=== PATIENT | female | born 1965 | race Caucasian/White ===

== ENCOUNTER → 2017-01-24 | Day surgery (SDC) | payer OTHER ==
[~2017-01-24] VITALS: Ht 170.2 cm; Wt 57.1 kg
[~2017-01-24] MED LIST: *ONDANSETRON 4 MG VIAL PERIprocedural Use ONLY ONE; *diphenhydrAMINE HCL 50 MG/ML VIAL PERIprocedural Use ONLY ONE; *morphine SULFATE 8 MG/ML PERIprocedure ONLY ONE; AMBI5TAB PO; BUPIVACAINE/EPINEPHRINE 0.5% 50 ML VIAL ONE; CHLORHEXIDINE GLUCONATE 2 % 1 PACK (2 CLOTHS) TOPICAL PRN; CIPR250T52 PO; DO NOT ADM ANY ANTICOAGULANT DRUGS PRN; EFFE150C PO; EVAM1.532; FAMOTIDINE 20 MG/2 ML VIAL ONE; FLUO1TAB3 PO; INSULIN HUMAN REGULAR 1,000 UNITS/10 ML VIAL SQ PRN; KETO10 PO; KETOROLAC TROMETHAMINE 10 MG TAB PO PRN; LEVO.125 PO; METOPROLOL TARTRATE 25 MG TAB PO PRN; MIDAZOLAM HCL 2 MG/2 ML VIAL ONE; ONDANSETRON HCL 4 MG/2 ML VIAL IV PUSH ONE; POVIDONE IODINE 5% (ANTISEPSIS KIT) 4 APPLICATIONS EACH NARE PRN; PROG100C PO; PROPOFOL 200 MG/20 ML AMP IV ONE; SODIUM CHLORID 0.9% 500 ML IV PRN; SUGAMMADEX SODIUM 200 MG/2 ML VIAL IV PUSH ONE; VYVA50CA3 PO
[2017-01-24] MEDS: LACTATED RINGER'S 1000 ML IV PRN ×2 (06:30→09:40)
[2017-01-24 06:49] LABS: AUTOMATED NEUTROPHIL # 1.7 TH/MM3 (1.8-7.7); BASOPHIL # 0.1 TH/MM3 (0-0.2); BASOPHIL % 2.1 % (0.0-2.0); EOSINOPHIL # 0.3 TH/MM3 (0-0.4); HEMATOCRIT 41.1 % (35.0-46.0); HEMO FLAGS DIFF FINAL; LYMPH % 27.9 % (9.0-44.0); MEAN CELL VOLUME 84.5 FL (80.0-100.0); MEAN CORPUSCULAR HEMOGLOBIN 27.4 PG (27.0-34.0); MEAN CORPUSCULAR HGB CONC 32.4 % (32.0-36.0); MONO % 14.8 % (0.0-8.0); NEUT % 48.2 % (16.0-70.0); PLATELET COUNT 257 TH/MM3 (150-450); RED BLOOD COUNT 4.86 MIL/MM3 (4.00-5.30); WHITE BLOOD COUNT 3.6 TH/MM3 (4.0-11.0)
[2017-01-24 07:13] LABS: BETA HCG QUANT 1 MIU/ML (0-5)
--- NOTE | 2017-01-24 09:41 | PD.OP ---
Operative Report Date of Surgery: Jan 24, 2017 Preoperative Diagnosis: (1) Left ovarian cyst Postoperative Diagnosis: (1) Left ovarian cyst Procedure: operative LSC BSO Anesthesia: general Surgeon: Quentin Davalos Log Inspector(s): Quentin Busby MD Jan 24, 2017 09:41
--- NOTE | 2017-01-24 09:47 | HHI.DCPOC ---
Discharge Care Plan Diagnosis: (1) Left ovarian cyst Report Symptoms to Your Doctor -Temperature above 100.5 degrees -Redness, of incision or excessive or foul smelling drainage -Unusual pain or calf pain -Increased vaginal bleeding -Painful or difficulty urinating -Feelings of extreme sadness or anxiety after 2 weeks Goals to Promote Your Health * To prevent worsening of your condition and complications * To maintain your health at the optimal level Directions to Meet Your Goals Take your medications as prescribed Follow your dietary instruction Follow activity as directed Ensure plenty of rest for recovery Drink fluids for hydration Keep your appointments as scheduled Take your immunizations and boosters as scheduled If your symptoms worsen call your PCP, if no PCP go to Urgent Care Center or Emergency Room Smoking is Dangerous to Your Health. Avoid second hand smoke Call the 24-hour crisis hotline for domestic abuse at Quentin Davalos MD Jan 24, 2017 09:47
[2017-01-24 11:47] VITALS: BP 160/93; PULSE 66; RESP 16; TEMP 97.8; O2SAT 100
--- NOTE | 2017-01-24 13:07 | EKG ---
Date Performed: 01/24/2017 Time Performed: 07:15:14 PTAGE: 51 years EKG: SINUS BRADYCARDIA BORDERLINE ECG NO PREVIOUS TRACING DOCTOR: Jaqui Jewell Interpretating Date/Time 01/24/2017 13:05:08
--- NOTE | 2017-01-24 22:18 | MP ---
cc: TAYO DAVALOS DATE OF SURGERY 01/24/2017 PROCEDURE Operative laparoscopy with bilateral salpingo-oophorectomy. PREOPERATIVE DIAGNOSIS Left ovarian cyst 10 cm. POSTOPERATIVE DIAGNOSIS Left ovarian cyst [address] Tayo Davalos ESTIMATED BLOOD LOSS Less than 10 cc. COMPLICATIONS None. FINDINGS Large left ovarian cyst simple. No adhesions. Right ovary was postmenopausal. Upper abdomen, lower abdomen including appendix and liver were normal. ANESTHESIA General, Dr. Ron PROCEDURE IN DETAIL After informed consent the patient was taken to the operating room where she was placed under general anesthesia, placed in the spine position, legs in Yellofin stirrups. Abdomen, perineum, vagina prepped, draped in normal sterile fashion. Bladder was drained with a red Ryan catheter. Time-out was taken for the procedure and the patient identified. All equipment was available. At this point speculum was placed in the vagina. Cervix was grasped with a single-tooth tenaculum and an acorn uterine manipulator was placed in the cervix without difficulty. Once the cervix was able to be moved the gloves were changed and a 5 mm infraumbilical incision was then made after injection of 0.25% Marcaine with epinephrine, we entered the abdomen under direct visualization. The abdomen is insufflated with CO2 and a suprapubic 10/12 trocar was placed and a left lower quadrant 5 mm trocar was placed avoiding injury to blood vessels. The upper and lower abdomen as described in the findings. The left ovarian cyst was large, seen to be starting to have a torsion and the cyst was grasped along with the fallopian tube, we came across the infundibulopelvic ligament with the Harmonic scalpel. Good hemostasis was achieved in this area. We amputated that from the utero-ovarian ligament at the uterus. This was done without difficulty. On the right side the ovary was small, fallopian tube was grasped. We came underneath the infundibulopelvic ligament avoiding injury to pelvic sidewall structures, removed that ovary from the uterus also. This was all done with good hemostasis. When we went back and looked at the left side there was some oozing coming from that pedicle. Attempt with the Harmonic scalpel was unsuccessful to control that bleeding so a bipolar cautery was opened. We cauterized the vessel without difficulty and good hemostasis was achieved then in the left side. The ureter was visualized on the left, peristalsing well before removal of the ovary and after removal of the ovary and after the bipolar was used. The patient tolerated the procedure well. She was taken to the recovery room in stable condition after the suprapubic area was closed with Vicryl suture and the subcuticular stitch was placed suprapubically and a simple stitch was placed in each 5 mm trocar in the left lower quadrant and the umbilicus. The patient did well and was in stable condition upon arrival to PACU. MD RADHA Naranjo/BRONWYN /10:02 AM /9:59 PM
== END | disposition home or self-care (01) ==
LOC: HSDC 05:35
PROVIDERS: ATTEND Obstetrics & Gynecology
DX: N83.202 Unspecified ovarian cyst, left side (principal); N93.9 Abnormal uterine and vaginal bleeding, unspecified; E06.3 Autoimmune thyroiditis; E03.9 Hypothyroidism, unspecified; K21.9 Gastro-esophageal reflux disease without esophagitis; Z01.810 Encounter for preprocedural cardiovascular examination; Z79.899 Other long term (current) drug therapy
CPT/HCPCS: 00840; 58661; 84702; 85025; 88305; 93005; J1200; J2250; J2270; J2405; J3010; J7120

== ENCOUNTER → 2017-09-14 | Outpatient (CLI) | payer OTHER ==
[~2017-09-14] MED LIST changes: -*ONDANSETRON 4 MG VIAL PERIprocedural Use ONLY ONE; -*diphenhydrAMINE HCL 50 MG/ML VIAL PERIprocedural Use ONLY ONE; -*morphine SULFATE 8 MG/ML PERIprocedure ONLY ONE; -BUPIVACAINE/EPINEPHRINE 0.5% 50 ML VIAL ONE; -CHLORHEXIDINE GLUCONATE 2 % 1 PACK (2 CLOTHS) TOPICAL PRN; -CIPR250T52 PO; -DO NOT ADM ANY ANTICOAGULANT DRUGS PRN; -EFFE150C PO; -FAMOTIDINE 20 MG/2 ML VIAL ONE; -INSULIN HUMAN REGULAR 1,000 UNITS/10 ML VIAL SQ PRN; -KETOROLAC TROMETHAMINE 10 MG TAB PO PRN; +LISD50 PO; -METOPROLOL TARTRATE 25 MG TAB PO PRN; -MIDAZOLAM HCL 2 MG/2 ML VIAL ONE; -ONDANSETRON HCL 4 MG/2 ML VIAL IV PUSH ONE; -POVIDONE IODINE 5% (ANTISEPSIS KIT) 4 APPLICATIONS EACH NARE PRN; -PROPOFOL 200 MG/20 ML AMP IV ONE; -SODIUM CHLORID 0.9% 500 ML IV PRN; -SUGAMMADEX SODIUM 200 MG/2 ML VIAL IV PUSH ONE; -VYVA50CA3 PO
[2017-09-14 12:26] LABS: AUTOMATED NEUTROPHIL # 3.9 TH/MM3 (1.8-7.7); BASOPHIL # 0.1 TH/MM3 (0-0.2); BASOPHIL % 1.7 % (0.0-2.0); EOSINOPHIL # 0.2 TH/MM3 (0-0.4); EOSINOPHIL % 2.8 % (0.0-4.0); HEMATOCRIT 38.4 % (35.0-46.0); LYMPH % 21.7 % (9.0-44.0); LYMPHOCYTE # 1.3 TH/MM3 (1.0-4.8); MEAN CELL VOLUME 82.7 FL (80.0-100.0); MEAN CORPUSCULAR HGB CONC 33.9 % (32.0-36.0); MEAN PLATELET VOLUME 6.8 FL (7.0-11.0); MONO % 7.5 % (0.0-8.0); MONOCYTE # 0.4 TH/MM3 (0-0.9); NEUT % 66.3 % (16.0-70.0); PLATELET COUNT 270 TH/MM3 (150-450); RED BLOOD COUNT 4.64 MIL/MM3 (4.00-5.30); RED CELL DISTRIBUTION WIDTH 14.3 % (11.6-17.2); WHITE BLOOD COUNT 5.9 TH/MM3 (4.0-11.0)
[2017-09-14 12:46] LABS: ALBUMIN 4.1 GM/DL (3.4-5.0); AST (GOT) 30 U/L (15-37); BICARBONATE 25.9 MEQ/L (21.0-32.0); BLOOD UREA NITROGEN 13 MG/DL (7-18); CALCIUM 8.9 MG/DL (8.5-10.1); CHLORIDE 101 MEQ/L (98-107); CHOLESTEROL 210 MG/DL (120-200); CREATININE 0.77 MG/DL (0.50-1.00); GLOMERULAR FILTRATION RATE 79 ML/MIN (>89); GLUCOSE,FASTING 91 MG/DL (74-99); SODIUM (NA) 136 MEQ/L (136-145)
[2017-09-14 12:57] LABS: ALKALINE PHOSPHATASE 86 U/L (45-117); ALT (GPT) 29 U/L (10-53); CHOLESTEROL/ HDL RATIO 2.02 RATIO; FREE T4 1.09 NG/DL (0.76-1.46); HDL CHOLESTEROL 103.7 MG/DL (40.0-60.0); LDL CHOLESTEROL 88 MG/DL (0-99); TOTAL BILIRUBIN ADULT 0.4 MG/DL (0.2-1.0); TOTAL PROTEIN 6.7 GM/DL (6.4-8.2); TRIGLYCERIDES 90 MG/DL (42-150)
== END ==
LOC: CLAB 11:54
PROVIDERS: ATTEND Family Medicine
DX: E78.2 Mixed hyperlipidemia (principal); E06.3 Autoimmune thyroiditis
CPT/HCPCS: 36415; 80053; 80061; 82306; 84439; 84443; 85025